=== PATIENT | male | born 1975 | race Caucasian/White ===

== ENCOUNTER 2017-01-16 09:30 | Emergency (ER) | payer SELFPAY ==
[2017-01-16 10:10] LABS: Basophils % (Auto) 0.1 % (0.0-1.8); Eosinophils % (Auto) 1.2 % (0.0-4.3); Hemoglobin 17.2 gm/dl (11.8-15.2); Mean Corpuscular HGB Conc 33 % (32-34); Mean Corpuscular Hemoglobin 30 pg (28-32); Mean Corpuscular Volume 91 fl (84-94); Platelet Count 263 K/mm3 (140-440); Red Blood Count 5.74 M/mm3 (3.65-5.03); Red Cell Distribution Width 13.4 % (13.2-15.2); White Blood Count 19.2 K/mm3 (4.5-11.0)
[2017-01-16] MEDS ORDERED: NACL 0.9% 1000 ML 1,000 ML IV ONE ×2 (10:29→11:35)
[2017-01-16] MEDS ORDERED: TORADOL IV ONE (10:29)
--- NOTE | 2017-01-16 10:31 | Emergency Department Report ---
ED Abdominal Pain HPI - General Chief Complaint: Abdominal Pain Stated Complaint: ABD PAIN Time Seen by Provider: 01/16/17 10:28 Source: patient Mode of arrival: Ambulatory Limitations: No Limitations - History of Present Illness MD Complaint: abdominal pain -: Gradual, days(s) (1) Radiation: none Migration to: no migration Severity scale (0 -10): 3 Quality: cramping Consistency: intermittent Improves With: nothing Worsens With: nothing Associated Symptoms: nausea. denies: vomiting, diarrhea, fever, chills, constipation, dysuria - Related Data Home Medications Medication Instructions Recorded Confirmed Last Taken Aspirin [Aspirin BABY CHEW TAB] 81 mg PO QDAY 01/16/17 01/16/17 01/16/17 Furosemide [Lasix TAB] 40 mg PO QDAY 01/16/17 01/16/17 Unknown Lovastatin [Altoprev] 20 mg PO QPM 01/16/17 01/16/17 Unknown Previous Rx's Medication Instructions Recorded Last Taken Type HYDROcodone/APAP 7.5-325 [[place] 1 each PO BID PRN #10 tablet 01/16/17 Unknown Rx 7.5-325 mg TAB] Metoprolol [Lopressor TAB] 25 mg PO BID #60 tablet 01/16/17 Unknown Rx glipiZIDE [Glucotrol] 5 mg PO QDAY #60 tablet 01/16/17 Unknown Rx metFORMIN [Glucophage] 500 mg PO BID #60 tablet 01/16/17 Unknown Rx Allergies Allergy/AdvReac Type Severity Reaction Status Date / Time No Known Allergies Allergy Unverified 01/16/17 09:38 ED Review of Systems ROS: Stated complaint: ABD PAIN Other details as noted in HPI Comment: All other systems reviewed and negative ED Past Medical Hx - Past Medical History Previous Medical History?: Yes Hx Hypertension: Yes Hx Heart Attack/AMI: Yes Hx Diabetes: Yes - Surgical History Past Surgical History?: Yes Hx Open Heart Surgery: Yes - Social History Smoking Status: Never Smoker Substance Use Type: Prescribed - Medications Home Medications: Home Medications Medication Instructions Recorded Confirmed Last Taken Type Aspirin [Aspirin BABY CHEW TAB] 81 mg PO QDAY 01/16/17 01/16/17 01/16/17 History Furosemide [Lasix TAB] 40 mg PO QDAY 01/16/17 01/16/17 Unknown History HYDROcodone/APAP 7.5-325 [[place] 1 each PO BID PRN #10 tablet 01/16/17 Unknown Rx 7.5-325 mg TAB] Lovastatin [Altoprev] 20 mg PO QPM 01/16/17 01/16/17 Unknown History Metoprolol [Lopressor TAB] 25 mg PO BID #60 tablet 01/16/17 Unknown Rx glipiZIDE [Glucotrol] 5 mg PO QDAY #60 tablet 01/16/17 Unknown Rx metFORMIN [Glucophage] 500 mg PO BID #60 tablet 01/16/17 Unknown Rx ED Physical Exam - General Limitations: No Limitations General appearance: alert, in no apparent distress - Head Head exam: Present: atraumatic, normocephalic - ENT ENT exam: Present: mucous membranes moist - Neck Neck exam: Present: normal inspection - Respiratory Respiratory exam: Present: normal lung sounds bilaterally. Absent: respiratory distress - Cardiovascular Cardiovascular Exam: Present: regular rate, normal rhythm. Absent: systolic murmur, diastolic murmur, rubs, gallop - GI/Abdominal GI/Abdominal exam: Present: soft, tenderness (epigastric ). Absent: guarding, rebound, hyperactive bowel sounds, hypoactive bowel sounds, organomegaly, mass, bruit - Extremities Exam Extremities exam: Present: normal inspection - Neurological Exam Neurological exam: Present: alert, oriented X3 ED Course Vital Signs 01/16/17 01/16/17 01/16/17 09:42 09:57 10:00 Temperature 97.4 F L Pulse Rate 93 H Respiratory 20 Rate Blood Pressure 132/96 127/83 129/90 Blood Pressure [Left] O2 Sat by Pulse 99 98 97 Oximetry 01/16/17 01/16/17 01/16/17 10:06 10:10 10:20 Temperature 98 F Pulse Rate 72 69 Respiratory 16 17 Rate Blood Pressure 129/90 127/83 Blood Pressure 127/83 [Left] O2 Sat by Pulse 98 98 99 Oximetry 01/16/17 01/16/17 01/16/17 10:30 10:40 11:09 Temperature Pulse Rate 73 99 H Respiratory 11 L 18 Rate Blood Pressure 127/83 127/83 131/80 Blood Pressure [Left] O2 Sat by Pulse 97 98 98 Oximetry 01/16/17 01/16/17 01/16/17 11:10 11:20 11:30 Temperature Pulse Rate Respiratory Rate Blood Pressure 131/80 131/80 131/80 Blood Pressure [Left] O2 Sat by Pulse 98 100 98 Oximetry 01/16/17 11:43 Temperature Pulse Rate Respiratory Rate Blood Pressure 131/80 Blood Pressure [Left] O2 Sat by Pulse 99 Oximetry ED Medical Decision Making - Lab Data Result diagrams: 01/16/17 13:29 01/16/17 13:29 - Medical Decision Making Patient been doing well in the ER he is pain free at this time and eating in the ER, labs are consistent with elevated wbc which i repeated and came down a bit same with his glucose , probably due to non compliance, will refill his meds Critical care attestation.: If time is entered above; I have spent that time in minutes in the direct care of this critically ill patient, excluding procedure time. ED Disposition Clinical Impression: Abdominal pain Disposition: DISCHARGED TO HOME OR SELFCARE Is pt being admited?: No Does the pt Need Aspirin: No Condition: Good Instructions: Acute Abdominal Pain (ED) Prescriptions: glipiZIDE [Glucotrol] 5 mg PO QDAY #60 tablet HYDROcodone/APAP 7.5-325 [[place] 7.5-325 mg TAB] 1 each PO BID PRN #10 tablet PRN Reason: Pain metFORMIN [Glucophage] 500 mg PO BID #60 tablet Metoprolol [Lopressor TAB] 25 mg PO BID #60 tablet Referrals: PRIMARY CARE, [Primary Care Provider] - 3-5 Days Time of Disposition: 14:11
[2017-01-16 10:35] LABS: Alanine Aminotransferase 33 units/L (7-56); Albumin 4.7 g/dL (3.9-5); Albumin/Globulin Ratio 1.2 %; Alkaline Phosphatase 143 units/L (35-129); Anion Gap 20 mmol/L; BUN/Creatinine Ratio 23.33; Bilirubin,Total 0.4 mg/dL (0.1-1.2); Blood Urea Nitrogen 14 mg/dL (9-20); Calcium 10.5 mg/dL (8.4-10.2); Carbon Dioxide 25 mmol/L (22-30); Chloride 92.9 mmol/L (98-107); Glucose 360 mg/dL (75-100); Lipase 24 units/L (13-60); Potassium 4.6 mmol/L (3.6-5.0); Sodium 133 mmol/L (137-145); Total Protein 8.7 g/dL (6.3-8.2)
[2017-01-16 11:17] LABS: Bilirubin,Urine NEG (Negative); Blood,Urine NEG (Negative); Ketones,Urine NEG (Negative); Leukocyte Esterase,Urine NEG (Negative); Mucus,Urine FEW /HPF; Nitrite,Urine NEG (Negative); Urobilinogen,Urine < 2.0 mg/dL (<2.0)
--- NOTE | 2017-01-16 11:28 | Cat Scan Report ---
CT abdomen and pelvis with contrast: Intravenous but no oral contrast administered. Transverse images obtained from lower chest to the ischium with coronal and sagittal 2-D reformatted images. The visualized lung bases are clear. The abdominal and retroperitoneal structures appear normal. The unopacified bowel and mesentery are unremarkable. The appendix is visualized. No adenopathy. Unremarkable bones. Impression: Normal study.
[2017-01-16 13:51] LABS: Basophils % (Auto) 0.1 % (0.0-1.8); Eosinophils % (Auto) 0.9 % (0.0-4.3); Hematocrit 48.6 % (35.5-45.6); Hemoglobin 16.1 gm/dl (11.8-15.2); Mean Corpuscular HGB Conc 33 % (32-34); Mean Corpuscular Hemoglobin 30 pg (28-32); Mean Corpuscular Volume 90 fl (84-94); Platelet Count 225 K/mm3 (140-440); Red Blood Count 5.39 M/mm3 (3.65-5.03); Red Cell Distribution Width 13.3 % (13.2-15.2); White Blood Count 18.4 K/mm3 (4.5-11.0)
[2017-01-16 14:07] LABS: Anion Gap 17 mmol/L; Blood Urea Nitrogen 12 mg/dL (9-20); Calcium 9.5 mg/dL (8.4-10.2); Carbon Dioxide 25 mmol/L (22-30); Chloride 99.4 mmol/L (98-107); Glucose 257 mg/dL (75-100); Potassium 5.8 mmol/L (3.6-5.0); Sodium 136 mmol/L (137-145)
[2017-01-16 14:27] VITALS: BP 106/71
== END 2017-01-16 14:30 | disposition home or self-care (01) ==
LOC: ED 09:30
DX: R10.13 Epigastric pain (principal); I10 Essential (primary) hypertension; I25.2 Old myocardial infarction; E11.9 Type 2 diabetes mellitus without complications; Z79.82 Long term (current) use of aspirin; Z86.73 Personal history of transient ischemic attack (TIA), and cerebral infarction without residual deficits
CPT/HCPCS: 36415; 74177; 80048; 80053; 81001; 83690; 85025; 96361; 96374; 99284; J1885; J7030; Q9967